=== PATIENT | female | born 1945 | race Caucasian/White ===

== ENCOUNTER 2022-01-17 09:01 | Emergency (ER) | payer MEDICARE, OTHER ==
[~2022-01-17] VITALS: Ht 170.2 cm; Wt 72.7 kg
[~2022-01-17 09:01] MED LIST: LISI-644 PO; OXYB5TAB16 PO; POTA-207 PO
[2022-01-17] MEDS ORDERED: acetaminophen 325mg tablet PO STA (09:24)
[2022-01-17] MEDS ORDERED: normal saline 1000ML IV soln IV ONE (09:25)
[2022-01-17] MEDS ORDERED: CefTRIAXone 2gm/D5W 50ml BAG 50 ML IV ONE (09:25)
[2022-01-17 09:55] LABS: EOSINOPHILS % (AUTO) 0.2 % (0-6); HEMOGLOBIN 13.2 g/dl (12.0-16.0); LYMPHOCYTES # (AUTO) 0.5 X10'3 (1.1-4.8); MEAN PLATELET VOLUME 6.7 FL (7.4-10.4); MONOCYTES # (AUTO) 0.4 X10'3 (0-0.9); PLATELET COUNT 135 X10'3 (140-440); WHITE BLOOD COUNT 4.8 X10'3 (4.5-11.0)
[2022-01-17 09:57] LABS: BASOPHILS % (AUTO) 0.3 % (0-1); HEMATOCRIT 38.8 % (35.0-45.0); LYMPHOCYTES % (AUTO) 10.6 % (21-51); MEAN CORPUSCULAR HEMOGLOBIN 31.8 PG (27.0-31.0); MEAN CORPUSCULAR HGB CONC 34.1 g/dL (33.0-36.5); MEAN CORPUSCULAR VOLUME 93.4 FL (78-98); MONOCYTES % (AUTO) 9.2 % (2-12); NEUTROPHILS # (AUTO) 3.8 X10'3 (1.8-7.7); NEUTROPHILS % (AUTO) 79.7 % (42-75); RED BLOOD COUNT 4.15 X10'6 (4.20-5.60); RED CELL DISTRIBUTION WIDTH 13.4 % (11.5-14.5)
--- NOTE | 2022-01-17 10:03 | NUR ---
pt back in the room from ct.
[2022-01-17 10:04] LABS: CLARITY,URINE CLOUDY (Clear); COLOR,URINE YELLOW (Yellow); GLUCOSE, URINE NEGATIVE (Neg); KETONES,URINE TRACE mg/dl (Neg); LEUKOCYTE ESTERASE ,URINE NEGATIVE (Neg); NITRITES, URINE POSITIVE (Neg); OCCULT BLOOD,URINE TRACE-INTACT (Neg); PROTEIN,URINE NEGATIVE (Neg); UROBILINOGEN,URINE 0.2 E.U/dL (0.2-1.0)
[2022-01-17 10:07] LABS: AMMONIA < 10 UMOL/L (11-32)
[2022-01-17 10:08] LABS: UA COLLECTION TYPE STRAIGHT CATH
[2022-01-17 10:11] LABS: LACTIC SEPSIS 0.9 MMOL/L (0.4-2.0)
[2022-01-17 10:11] LABS: BACTERIA,URINE 4+ /HPF (Neg); SQUAMOUS EPITHELIAL CELL,UR FEW /LPF (FEW)
[2022-01-17 10:12] LABS: WBC,URINE 50-100 /HPF (0-4)
[2022-01-17 10:13] LABS: TRANSITIONAL EPI CELLS,URINE FEW /HPF; WBC CLUMPS,URINE FEW /HPF (NEGATIVE)
[2022-01-17 10:37] LABS: ALANINE AMINOTRANSFERASE 24 U/L (12-78); ALBUMIN 4.1 G/DL (3.4-5.0); ALBUMIN/GLOBULIN RATIO 1.2 (1.1-1.5); ALKALINE PHOSPHATASE 66 IU/L (46-116); ANION GAP 9 (8-16); ASPARTATE AMINO TRANSFERASE 23 U/L (10-37); BILIRUBIN,TOTAL 0.4 MG/DL (0.1-1.0); BLOOD UREA NITROGEN 15 MG/DL (7-18); BUN/CREATININE RATIO 16.7 (6.6-38.0); CALCIUM 8.6 MG/DL (8.5-10.1); CHLORIDE 104 MMOL/L (99-107); GLUCOSE 114 MG/DL (70-104); POTASSIUM 3.8 MMOL/L (3.5-5.1); SODIUM 140 MMOL/L (135-145); TOTAL PROTEIN 7.5 G/DL (6.4-8.2); eGFR 61 ML/MIN
[2022-01-17 12:10] VITALS: BP 150/87
[2022-01-17] MEDS ORDERED: CEPH250T PO (12:16)
== END 2022-01-17 12:16 | disposition home or self-care (01) ==
LOC: ER 09:02
DX: N39.0 Urinary tract infection, site not specified (principal); R42 Dizziness and giddiness; R32 Unspecified urinary incontinence; Z96.652 Presence of left artificial knee joint; M19.90 Unspecified osteoarthritis, unspecified site; Z79.2 Long term (current) use of antibiotics; Z79.899 Other long term (current) drug therapy
CPT/HCPCS: 36415; 70450; 71045; 80053; 81001; 82140; 82948; 83605; 84145; 85025; 87040; 87077; 87088; 87186; 93005; 96365; 99285; J0696; J7030; J7040; A4353